=== PATIENT | male | born 1980 | race Two or more races ===

== ENCOUNTER 2024-08-01 12:23 | Inpatient (IN) | payer MEDICAID, OTHER ==
[~2024-08-01] VITALS: Ht 190.5 cm; Wt 116.9 kg
--- NOTE | 2024-08-01 13:22 | ED.PDOC ---
HPI Comments This is a 43 year old male presenting to the ED with chief complaint of lower extremity swelling. Patient reports that he has been experiencing bilateral lower extremity swelling with associated generalized weakness for the past 2 weeks. Patient relays that he had been seen by his PCP recently, but his labs were normal according to him. Patient denies any chest pain, SOB, dizziness, N/V, headache, or blurred vision. Chief Complaint: Lower Extremity Time Seen by MD: 13:08 Reviewed Notes: Nurses Notes, Medications, Allergies Allergies: Coded Allergies: Aspirin (Verified Allergy, Unknown, 08/01/24) Information Source: Patient Mode of Arrival: Ambulatory Severity: Moderate Timing: Weeks Duration: Since onset Prehospital treatment: None Onset: At Rest Cardiac Risk Factors: None PE Risk Factors: None Past Medical History PAST MEDICAL HISTORY: Denies Surgical History: Denies all surgeries Family History Family History: Reviewed,noncontributory to illness Social History Smoker: Non-Smoker Alcohol: Denies ETOH Use Drugs: Denies Drug Use Lives In: Home Constitutional: reports: weakness; denies: chills, diaphoresis, fatigue, fever, malaise, sweats, others EENTM: denies: blurred vision, double vision, ear bleeding, ear discharge, ear drainage, ear pain, ear ringing, eye pain, eye redness, hearing loss, mouth pain, mouth swelling, nasal discharge, nose bleeding, nose congestion, nose pain, photophobia, tearing, throat pain, throat swelling, voice changes, others Respiratory: denies: cough, hemoptysis, orthopnea, SOB at rest, shortness of breath, SOB with excertion, stridor, wheezing, others Cardiovascular: reports: edema; denies: chest pain, dizzy spells, diaphoresis, Dyspnea on exertion, irregular heart beat, left arm pain, lightheadedness, palpitations, PND, syncope, others Gastrointestinal: denies: abdomen distended, abdominal pain, blood streaked bowels, constipated, diarrhea, dysphagia, difficulty swallowing, hematemesis, melena, nausea, poor appetite, poor fluid intake, rectal bleeding, rectal pain, vomiting, others Genitourinary: denies: burning, dysuria, flank pain, frequency, hematuria, i ncontinence, penile discharge, penile sore, pain, testicle pain, testicle swelling, urgency, others Neurological: denies: dizziness, fainting, headache, left sided numbness, left sided weakness, numbness, paresthesia, pre-existing deficit, right sided numbness, right sided weakness, seizure, speech problems, tingling, tremors, weakness, others Musculoskeletal: denies: back pain, gout, joint pain, joint swelling, muscle pain, muscle stiffness, neck pain, others Integumetry: denies: bruises, change in color, change in hair/nails, dryness, laceration, lesions, lumps, rash, wounds, others Allergic/Immunocompromised: denies: Difficulty Healing, Frequent Infections, Hives, Itching, others Hematologic/Lymphatic: denies: anemia, blood clots, easy bleeding, easy bruising, swollen glands, others Endocrine: denies: excessive hunger, excessive sweating, excessive thirst, excessive urination, flushing, intolerance to cold, intolerance to heat, unexplained weight gain, unexplained weight loss, others Psychiatric: denies: anxiety, bipolar disorder, depression, hopeless, panic disorder, schizophrenia, sleepless, suicidal, others All Other Systems: Reviewed and Negative Physical Exam General Appearance: No Apparent Distress, Normal HEENT: Normal ENT Inspection, PERRL/EOMI Neck: Full Range of Motion, Non-Tender, Normal, Normal Inspection Respiratory: Chest Non-Tender, Lungs Clear, No Accessory Muscle Use, No Respiratory Distress, Normal Breath Sounds Cardiovascular: No Edema, No JVD, No Murmur, No Gallop, Normal Peripheral Pulses, Regular Rate/Rhythm Breast Exam: Deferred Gastrointestinal: No Organomegaly, Non Tender, No Pulsatile Mass, Normal Bowel Sounds, Soft Genitalia: Deferred Pelvic: Deferred Rectal: Deferred Extremities: Leg edema (2+ pitting edema to bilateral lower extremities.), Normal capillary refill, Normal inspection, Normal range of motion Musculoskeletal : Apperance: Normal Neurologic: Alert, surveyor hydrographic II-XII nml as Tested, No Motor Deficits, Normal Affect, Normal Mood, No Sensory Deficits Cerebellar Function: Normal Reflexes: Normal Skin: Dry, Normal Color, Warm Lymphatic: No Adenopathy Was a procedure done? Was a procedure done?: No CP Differential Dx Differential Diagnosis: AK Differential Diagnosis: HTN Essential, HTN Accelerated Differential Diagnosis: Gastritis, Myocardial Infarction X-Ray, Labs, Meds, VS Vital Signs Date Time Temp Pulse Resp B/P (MAP) Pulse Ox O2 Delivery O2 Flow Rate FiO2 08/01/24 12:50 98.8 67 12 134/74 (94) 99 98.8 Lab Test 08/01/24 15:00 08/01/24 14:05 08/01/24 13:20 Range/Units Urine Color Pending Urine Clarity Pending Urine pH Pending Urine Specific [place] Pending Urine Protein Pending Urine Ketones Pending Urine Blood Pending Urine Nitrite Pending Urine Bilirubin Pending Urine Urobilinogen Pending Urine Leukocyte Esterase Pending Urine RBC Pending Urine Microscopic WBC Pending Urine Squamous Epithelial Cells Pending Urine Bacteria Pending Urine Glucose Pending Troponin I High Sensitivity 8 7 </=54 ng/L White Blood Count 5.5 4.4-10.8 10^3/uL Red Blood Count 4.04 L 4.5-5.90 10^6/uL Hemoglobin 11.9 L 13.5-17.5 g/dL Hematocrit 35.3 L 41.0-53.0 % Mean Corpuscular Volume 87.5 80.0-100.0 fL Mean Corpuscular Hemoglobin 29.6 28.0-32.0 pg Mean Corpuscular Hemoglobin Concent 33.8 32.0-36.0 g/dL Red Cell Distribution Width 14.9 H 11.8-14.3 % Platelet Count 367 140-450 10^3/uL Mean Platelet Volume 6.4 L 6.9-10.8 fL Neutrophils (%) (Auto) 37.0 37.0-80.0 % Lymphocytes (%) (Auto) 51.9 H 10.0-50.0 % Monocytes (%) (Auto) 7.1 0.0-12.0 % Eosinophils (%) (Auto) 2.7 0.0-7.0 % Basophils (%) (Auto) 1.3 0.0-2.0 % Neutrophils # (Auto) 2.0 1.6-8.6 10 ^3/uL Lymphocytes # (Auto) 2.9 0.4-5.4 10 ^3/uL Monocytes # (Auto) 0.4 0-1.3 10 ^3/uL Eosinophils # (Auto) 0.1 0-0.8 10 ^3/uL Basophils # (Auto) 0.1 0-0.2 10 ^3/uL Nucleated Red Blood Cells 0.1 % Sodium Level 143 136-145 mmol/L Potassium Level 4.3 3.5-5.1 mmol/L Chloride Level 110 H 98-107 mmol/L Carbon Dioxide Level 28 20-31 mmol/L Anion Gap 5 5-15 Blood Urea Nitrogen 14 9-23 mg/dL Creatinine 1.08 0.700-1.30 mg/dL Glomerular Filtration Rate Calc 88 >90 mL/min BUN/Creatinine Ratio 13.0 10.0-20.0 Serum Glucose 101 74-106 mg/dL Calcium Level 8.9 8.7-10.4 mg/dL B-Type Natriuretic Peptide 132.15 0-100 pg/mL Chest XR: FINDINGS: Lines and tubes: None Cardiomediastinal silhouette: normal Pulmonary vasculature: normal Lung expansion: normal Lung airspace: normal Lung interstitium: normal Pleura: normal Pneumothorax: no Bones: Unremarkable Other: no IMPRESSION: No acute intrathoracic abnormality. Images Reviewed?: Images reviewed and evaluated by me Time of 1ST Reevaluation: 14:08 Reevaluation 1ST: Unchanged Patient Education/Counseling: Diagnosis, Treatment Family Education/Counseling: No Family Present Additional Information Previous visits reviewed: None The following tests were ordered, and results were reviewed by me: CBC, BMP, BNP, UA, Troponin, EKG, Chest XR Additional Information was gathered from interviewing the following independent historians: None I reviewed and agreed with the following test results read by other providers: Chest XR I discussed treatment and results with medical personnel and: patient Comprehensive systems review obtained and negative except for what is stated in the HPI. Departure 1 Departure Time of Disposition: 15:35 (Patient with concern of new onset heart failure. Patient's workup so far is benign however patient with a worsening weakness and lower extremity edema.) Impression: Primary Impression: Lower extremity edema Additional Impressions: Generalized weakness Suspected congestive heart failure Disposition: ADMITTED INPATIENT Admit to: Med Surg Condition: Serious Critical Care Note Critical Care Time?: No Stability Stability form required: No Heart Score Heart Score: Heart Score Response (Comments) Value History Highly Suspicious 2 EKG Normal 0 Age <45 0 Risk Factors No known risk factors 0 Troponin Normal limit 0 Total 2 I personally scribed for BERKLEY DIAZ MD ([email or web address]) on 08/01/24 at 13:22. Electr onically submitted by Neri Marrero ([email or web address]). I personally scribed for BERKLEY DIAZ MD ([email or web address]) on 08/01/24 at 13:38. Electr onically submitted by Neri Marrero ([email or web address]). BERKLEY DIAZ MD Aug 01, 2024 13:22
--- NOTE | 2024-08-01 13:23 | DVH ---
XY CHEST PORTABLE, HISTORY: lower extremity swelling COMPARISON: None None TECHNICAL DATA: 1 view of the chest was obtained. FINDINGS: Lines and tubes: None Cardiomediastinal silhouette: normal Pulmonary vasculature: normal Lung expansion: normal Lung airspace: normal Lung interstitium: normal Pleura: normal Pneumothorax: no Bones: Unremarkable Other: no IMPRESSION: No acute intrathoracic abnormality.
[2024-08-01 13:45] LABS: Basophils # (auto) 0.1 10 ^3/uL (0-0.2); Basophils % (auto) 1.3 % (0.0-2.0); Eosinophils # (auto) 0.1 10 ^3/uL (0-0.8); Eosinophils % (auto) 2.7 % (0.0-7.0); Hematocrit 35.3 % (41.0-53.0); Hemoglobin 11.9 g/dL (13.5-17.5); Lymphocytes # (auto) 2.9 10 ^3/uL (0.4-5.4); Lymphocytes % (auto) 51.9 % (10.0-50.0); Mean Corpuscular Hemoglobin 29.6 pg (28.0-32.0); Mean Corpuscular Hgb Conc. 33.8 g/dL (32.0-36.0); Mean Corpuscular Volume 87.5 fL (80.0-100.0); Monocytes # (auto) 0.4 10 ^3/uL (0-1.3); Monocytes % (auto) 7.1 % (0.0-12.0); Nucleated Red Blood Cells % 0.1 %; Platelet Count (auto) 367 10^3/uL (140-450); Red Blood Cells 4.04 10^6/uL (4.5-5.90); Red Cell Distribution Width 14.9 % (11.8-14.3); White Blood Cell 5.5 10^3/uL (4.4-10.8)
[2024-08-01 13:51] LABS: Potassium 4.3 mmol/L (3.5-5.1); Sodium 143 mmol/L (136-145)
[2024-08-01 13:52] LABS: Anion Gap 5 (5-15); Calcium 8.9 mg/dL (8.7-10.4); Carbon Dioxide 28 mmol/L (20-31)
[2024-08-01 13:53] LABS: Chloride 110 mmol/L (98-107)
[2024-08-01 13:57] LABS: Blood Urea Nitrogen 14 mg/dL (9-23); Glucose 101 mg/dL (74-106)
[2024-08-01 15:56] LABS: Urine Bacteria FEW /hpf (None Seen); Urine Blood 1+ /uL (Negative); Urine Clarity Clear (Clear); Urine Color Yellow (Yellow); Urine Mucus FEW (None Seen); Urine Protein, UAD 2+ (Negative); Urine Specific Gravity 1.032 (1.001-1.035); Urine Squamous Epithelial Cell FEW /hpf (<5); Urine Urobilinogen Normal (Negative); Urine WBC 4 /HPF (0-3); Urine pH 5.5 (5.0-9.0)
[2024-08-01 18:35] VITALS: PULSE 67; RESP 20; O2SAT 97
[2024-08-01] MEDS: ACETAMINOPHEN 325 MG TAB PO ONE (19:06)
[2024-08-01 22:57] LABS: Protein, Urine 170.9 mg/dL (1-14)
[2024-08-01 23:00] LABS: Cannabinoid Screen, Urine Pos (NEGATIVE)
[2024-08-01 23:08] LABS: Urine Protein/Creatinine Ratio 0.57
[2024-08-01 23:10] LABS: Creatinine, Urine 300.83 mg/dL (30.0-125.0)
[2024-08-01 23:11] LABS: Amphetamine Screen, Urine Neg (NEGATIVE); Barbiturate Scree,Urine Neg (NEGATIVE); Benzodiazephine Screen, Urine Neg (NEGATIVE); Cocaine Screen, Urine Neg (NEGATIVE); Phencyclidine Screen, Urine Neg (NEGATIVE)
[2024-08-01 23:42] LABS: Opiate Scree,Urine Neg (NEGATIVE)
[2024-08-02] VITALS (7 sets, daily range): BP systolic 128–166; BP diastolic 75–85; PULSE 50–67; RESP 16–20; TEMP 97.9–98.6; O2SAT 97–100
[2024-08-02] MEDS: FUROSEMIDE 40 MG/4 ML VIAL IV ONE (00:06)
[2024-08-02] MEDS ORDERED: ACETAMINOPHEN 325 MG TAB PO PRN (01:00)
--- NOTE | 2024-08-02 01:03 | DVH ---
Bilateral lower extremity venous duplex Clinical History: rule out DVT Comparison: None Technique: Duplex Doppler evaluation of the deep venous systems of both lower extremities from the common femora l veins to the popliteal veins including color Doppler and spectral/pulsed waveform analysis was perf ormed. Findings: RIGHT SIDE: The common femoral vein demonstrates appropriate compressibility and waveform variability. There is compressibility/patency of the great saphenous vein at the proximal thigh. The femoral vein demonstrates appropriate compressibility and waveform variability. The deep femoral vein demonstrates appropriate compressibility and waveform variability. The popliteal vein demonstrates appropriate compressibility and waveform variability. There is normal compressibility at the tibioperoneal trunk. LEFT SIDE: The common femoral vein demonstrates appropriate compressibility and waveform variability. There is compressibility/patency of the great saphenous vein at the proximal thigh. The femoral vein demonstrates appropriate compressibility and waveform variability. The deep femoral vein demonstrates appropriate compressibility and waveform variability. The popliteal vein demonstrates appropriate compressibility and waveform variability. There is normal compressibility at the tibioperoneal trunk. Multiple enlarged inguinal lymph nodes identified bilaterally measuring up to 3.2 cm on the right and 2.6 cm on the left. Impression: 1. No right or left femoropopliteal venous thrombosis. 2. Enlarged bilateral inguinal lymph nodes.
--- NOTE | 2024-08-02 01:06 | DVHHPRES ---
History of Present Illness Resident Creating Document: SHIRA ESTEVEZ RESIDENT History of Present Illness Patient is a 43-year-old male with no significant past medical history presented to the ED with a chief complaint of bilateral lower extremity swelling. He reports having started with the left lower extremity since the past 2 weeks and after a few days his right lower extremity also started to swell up. The swelling is worse at the end of the day, patient works at [employer] and has a standing job. Reports early in the morning the swelling is less as compared to the evening by the end of a shift. Reports of pain in the left lower extremity which has also gotten worse in the last 1 week. Denies any periorbital swelling, does not report of urine being frothy, no dysuria, shortness of breath even when exerting himself, no history of hypertension or diabetes. Patient denies any history of chronic liver disease. Reports of having a ear infection recently about a week ago for which he was prescribed oral antibiotics and reports it is better. Past medical history: None Past surgical history: None Social history: Patient denies smoking, alcohol, any other drug use Family history: No family history of heart disease, mother had breast cancer No home medications Review of Systems Review of Systems Patient seen and examined at the bedside Reports of bilateral pedal edema Left lower extremity tenderness at the level of the ankle Denies shortness of breath, chest pain Allergies: Coded Allergies: Aspirin (Verified Allergy, Unknown, 08/01/24) Exam Vital Signs Vital Signs Date Time Temp Pulse Resp B/P (MAP) Pulse Ox O2 Delivery O2 Flow Rate FiO2 08/02/24 00:06 136/90 08/01/24 23:54 61 16 98 08/01/24 19:06 98.1 08/01/24 18:35 Room Air* 0 21 Exam Gen - no pallor, no icterus, no cyanosis, no clubbing Skin - Patients skin is warm and dry. HEENT - normocephalic, atraumatic, moist mucous membranes. Neck - full ROM, no LAD, no JVD Pulmonary - B/L equal breath sounds, no crackles, no wheezing, no stridor. cardiovascular - regular S1,S2 heard, no added sounds, no murmurs heard. peripheral pulses normal radial 2+, pedal 2+. capillary refill normal <2 secs. Extremities: Bilateral lower extremity edema, 3+ on the left, 2+ on the right with swelling more on the left than the right GI - soft, nontender abdomen. no hepatospleenomegaly. Bowel sounds normoactive Neurological - Patient is A/O X 3 . Bilateral upper extremity strength 5/5, bilateral lower extremity strength 5/5, no facial droop, normal speech, no tremor, no sensory deficiets. Labs/Xrays Labs Test 08/01/24 16:40 08/01/24 15:00 08/01/24 13:20 Range/Units Troponin I High Sensitivity 7 </=54 ng/L Urine Color Yellow Yellow Urine Clarity Clear Clear Urine pH 5.5 5.0-9.0 Urine Specific [place] 1.032 1.001-1.035 Urine Protein 2+ H Negative Urine Ketones Negative Negative Urine Blood 1+ H Negative /uL Urine Nitrite Negative Negative Urine Bilirubin Negative Negative Urine Urobilinogen Normal Negative mg/dL Urine Leukocyte Esterase Negative Negative /uL Urine RBC 1 0 - 3 /hpf Urine Microscopic WBC 4 H 0-3 /HPF Urine Squamous Epithelial Cells Few <5 /hpf Urine Bacteria Few H None Seen /hpf Urine Mucus Few None Seen Urine Creatinine 300.83 H 30.0-125.0 mg/dL Urine Protein/Creatinine Ratio 0.57 Urine Glucose Normal Normal mg/dL Urine Total Protein 170.9 H 1-14 mg/dL Urine Opiates Screen Neg NEGATIVE Urine Fentanyl Screen Neg NEGATIVE Urine Barbiturates Screen Neg NEGATIVE Urine Phencyclidine Screen Neg NEGATIVE Urine Amphetamines Screen Neg NEGATIVE Urine Benzodiazepines Screen Neg NEGATIVE Urine Cocaine Screen Neg NEGATIVE Urine Cannabinoids Screen Pos NEGATIVE White Blood Count 5.5 4.4-10.8 10^3/uL Red Blood Count 4.04 L 4.5-5.90 10^6/uL Hemoglobin 11.9 L 13.5-17.5 g/dL Hematocrit 35.3 L 41.0-53.0 % Mean Corpuscular Volume 87.5 80.0-100.0 fL Mean Corpuscular Hemoglobin 29.6 28.0-32.0 pg Mean Corpuscular Hemoglobin Concent 33.8 32.0-36.0 g/dL Red Cell Distribution Width 14.9 H 11.8-14.3 % Platelet Count 367 140-450 10^3/uL Mean Platelet Volume 6.4 L 6.9-10.8 fL Neutrophils (%) (Auto) 37.0 37.0-80.0 % Lymphocytes (%) (Auto) 51.9 H 10.0-50.0 % Monocytes (%) (Auto) 7.1 0.0-12.0 % Eosinophils (%) (Auto) 2.7 0.0-7.0 % Basophils (%) (Auto) 1.3 0.0-2.0 % Neutrophils # (Auto) 2.0 1.6-8.6 10 ^3/uL Lymphocytes # (Auto) 2.9 0.4-5.4 10 ^3/uL Monocytes # (Auto) 0.4 0-1.3 10 ^3/uL Eosinophils # (Auto) 0.1 0-0.8 10 ^3/uL Basophils # (Auto) 0.1 0-0.2 10 ^3/uL Nucleated Red Blood Cells 0.1 % Sodium Level 143 136-145 mmol/L Potassium Level 4.3 3.5-5.1 mmol/L Chloride Level 110 H 98-107 mmol/L Carbon Dioxide Level 28 20-31 mmol/L Anion Gap 5 5-15 Blood Urea Nitrogen 14 9-23 mg/dL Creatinine 1.08 0.700-1.30 mg/dL Glomerular Filtration Rate Calc 88 >90 mL/min BUN/Creatinine Ratio 13.0 10.0-20.0 Serum Glucose 101 74-106 mg/dL Calcium Level 8.9 8.7-10.4 mg/dL B-Type Natriuretic Peptide 132.15 0-100 pg/mL Assessment/Plan Assessment/Plan Bilateral lower extremity edema Probable nephritic syndrome ?PSGN, non nephrotic range proteinuria ? Early nephrotic syndrome, possibly due to undiagnosed hypertension Rule out congestive heart failure Rule out liver disease ? Gout - IV Lasix - spot urine total protein 170 mg/dL, urine dipstick protein 2+ - urine protein/creatinine ratio 0.57 - microscopic hematuria 1+ - ARABELLA pending, HbA1c pending - complement level, antistreptolysin O antibody pending - lipid panel pending - echocardiogram pending - 1 dose of losartan given DVT prophylaxis: Enoxaparin Goals of care discussed with the patient for over 23 minutes. Full code Time spent: 41 minutes Plan discussed with Dr. Neville Plan discussed with: Patient My Orders Orders - JHAJJ,SARPUNEET RESIDENT Procedure Category Date Status Time Admit ADMIT 08/01/24 Transmitted 22:15 Notify Of Changes LUISANA 08/01/24 In Process From Base 22:15 Echo 2d Mode Cardiac US 08/01/24 Logged DOP 22:15 Bilat Lower Dvt US 08/01/24 Taken 22:15 Complete Blood Count LAB 08/02/24 Logged 04:00 Comprehensive LAB 08/02/24 Logged Metabolic Panel 04:00 Date of Service: Aug 01, 2024 Billing Provider: MARYLU NEVILLE MD Common Visit Codes: 05027-WJPQWPU INP/OBS CARE (HIGH) Secondary Visit Codes: 50301-SBMOGRRL CARE PLAN 30 MINUTES SHIRA ESTEVEZ RESIDENT Aug 02, 2024 01:06
[2024-08-02] MEDS ORDERED: LOSARTAN POTASSIUM 50 MG TAB PO ONE (02:00)
[2024-08-02] MEDS: LOSARTAN POTASSIUM 25 MG TAB PO ONE (04:06)
[2024-08-02] MEDS: IBUPROFEN 600 MG TAB PO PRN (04:07)
[2024-08-02 06:48] LABS: Hematocrit 34.8 % (41.0-53.0); Hemoglobin 11.8 g/dL (13.5-17.5); Mean Corpuscular Hemoglobin 29.7 pg (28.0-32.0); Mean Corpuscular Hgb Conc. 33.9 g/dL (32.0-36.0); Mean Corpuscular Volume 87.7 fL (80.0-100.0); Platelet Count (auto) 335 10^3/uL (140-450); Red Blood Cells 3.97 10^6/uL (4.5-5.90); Red Cell Distribution Width 15.4 % (11.8-14.3); White Blood Cell 5.9 10^3/uL (4.4-10.8)
[2024-08-02 06:51] LABS: Band Neutrophils % (manual) 0; Basophils % (manual) 0 (0.0-2.0); Blast Cells 0; Metamyelocytes % 0; Myelocytes % 0; Promyelocytes % 0
[2024-08-02 06:52] LABS: Anion Gap 7 (5-15); BUN/Creatinine Ratio 15.2 (10.0-20.0); Blood Urea Nitrogen 15 mg/dL (9-23); Carbon Dioxide 28 mmol/L (20-31); Sodium 142 mmol/L (136-145); Total Protein 6.2 g/dL (5.7-8.2)
[2024-08-02 06:53] LABS: Alanine Aminotransferase 91 U/L (7-40); Albumin 3.1 g/dL (3.2-4.8); Aspartate Aminotransferase 59 U/L (13-40); Bilirubin, Total 0.2 mg/dL (0.2-1.0); Calcium 8.2 mg/dL (8.7-10.4); Chloride 107 mmol/L (98-107); Glucose 68 mg/dL (74-106); Uric Acid 9.8 mg/dL (3.7-9.2)
[2024-08-02 07:33] LABS: Erythrocyte Sedimentation Rate 55 mm/hr (0-20)
[2024-08-02 07:42] LABS: Alkaline Phosphatase 190 U/L (46-116)
[2024-08-02 07:43] LABS: Eosinophils % (manual) 1 (0-7); Lymphocytes % (manual) 56 (10.0-50.0); Monocytes % (manual) 8 (0-12); Reactive Lymphocytes 4
[2024-08-02 07:44] LABS: Platelet Estimate Adequate; RBC Morphology Normal
[2024-08-02] MEDS: FUROSEMIDE 20 MG/2 ML VIAL IV SCH (09:41)
[2024-08-02] MEDS: ENOXAPARIN SOD 40 MG/0.4 ML SYRINGE SC SCH (09:44)
[2024-08-02] MEDS ORDERED: KETOROLAC TROMETH 30 MG/ML 1ML VIAL IV PRN (11:30)
[2024-08-02] MEDS ORDERED: IBUPROFEN 600 MG TAB PO PRN (12:45)
--- NOTE | 2024-08-02 13:40 | DVHSR ---
APPROVED REPORT EXAM: Two-dimensional and M-mode echocardiogram with Doppler and color Doppler. Blood Pressure: 134/78 mmHg INDICATION B/L leg swelling RISK FACTORS Height: 73, Weight: 257 DIMENSIONS LVDd4.6 (3.8-5.7cm)LA (2D)5.5 (1.9-4.0cm)Aortic Root4.0 (2.0-3.7cm) LVDs3.2 (2.5-4.0cm)LA (MM) (1.9-4.0cm)Aortic Cusp Exc2.3 (1.5-2.0cm) EF (%) 58.0 (55-70%)Rt. Atrium4.9 (1.9-4.0cm)Asc. Aorta cm IVSd1.4 (0.7-1.1cm)RV (D) (1.8-2.4cm) PWd1.5 (0.7-1.1cm) Mitral Valve MitralMitral Stenosis E wave1.05m/sMV Mean GR.mmHg A wave0.49m/sMV Peak GR.mmHg E/A ratio2.12D MVAcm2 DECEL [id number] 1/2 [id number] IVRTmsDop MVA3.08cm2 Aortic Valve Aortic ValveAortic Stenosis V11.37m/Fermin Mean GR.6mmHg V21.65m/Fermin Peak GR.11mmHg LVOT Diameter2.5 (1.8-2.4cm)Doppler AVA4.07cm2 AI P 1/2 Mbms157.26ms Pulmonic Valve V21.13m/s Tricuspid Valve TR Velocity2.40m/s [id number] Conclusion lvef 60% borderline LVH grade 1 diastolic dysfunction normal rv function left atrium enlarged no severe valve abnormaliteis noted
[2024-08-02] MEDS: HYDROcodone-ACET 5/325MG TAB PO PRN (14:19)
[2024-08-02 15:51] LABS: Triglycerides 72 mg/dL (< 150)
[2024-08-02 15:52] LABS: Cholesterol 155 mg/dL (< 200)
[2024-08-02 15:53] LABS: HDL Cholesterol 41 mg/dL (40-59)
[2024-08-02 15:54] LABS: LDL Cholesterol 103 mg/dL (< 100)
--- NOTE | 2024-08-02 17:54 | DVHPNRES ---
Progress Note Date Seen: Aug 02, 2024 Resident Creating Document: KIAN MORTON RESIDENT Has the PT tested + for MRSA If YES, has PT been informed?: No Medical Necessity Reason Pt with a Central, PICC or Fol: No Subjective Review of Systems Patient is a 43-year-old male with no significant past medical history presented to the ED with a chief complaint of bilateral lower extremity swelling. He reports having started with the left lower extremity since the past 2 weeks and after a few days his right lower extremity also started to swell up. The swelling is worse at the end of the day, patient works at [employer] and has a standing job. Reports early in the morning the swelling is less as compared to the evening by the end of a shift. Reports of pain in the left lower extremity which has also gotten worse in the last 1 week. Denies any periorbital swelling, does not report of urine being frothy, no dysuria, shortness of breath even when exerting himself, no history of hypertension or diabetes. Patient denies any history of chronic liver disease. Reports of having a ear infection recently about a week ago for which he was prescribed oral antibiotics and reports it is better. Past medical history: None Past surgical history: None Social history: Patient denies smoking, alcohol, any other drug use Family history: No family history of heart disease, mother had breast cancer No home medications 08/02/2024: Patient still states edema and mild pain, clinical picture looks possible autoimmune condition, RF added to autoimmune panel Objective vital signs Vital Sign Date Time Temp Pulse Resp B/P (MAP) Pulse Ox O2 Delivery O2 Flow Rate FiO2 08/02/24 17:10 98.3 50 18 128/79 (95) 97 98.3 08/02/24 08:08 Room Air* 0 21 Total Intake and Output 08/01/24 08/01/24 08/02/24 15:00 23:00 07:00 Intake Total 400 ml Balance 400 ml medications Current Medications Medications Dose Ordered Sig/Castillo Route Start Time Stop Time Status Last Admin Dose Admin Furosemide 20 mg DAILY IV 08/02/24 10:00 08/02/24 09:41 20 MG Acetaminophen 650 mg Q8HP PRN PO 08/02/24 01:00 Enoxaparin Sodium 40 mg DAILY SC 08/02/24 10:00 08/02/24 09:44 40 MG Acetaminophen/ Hydrocodone Bitart 1 tab Q6HPRN PRN PO 08/02/24 12:30 08/02/24 14:19 1 TAB Ibuprofen 600 mg BIDPRN PRN PO 08/02/24 12:45 Examination Gen - no pallor, no icterus, no cyanosis, no clubbing Skin - Patients skin is warm and dry. HEENT - normocephalic, atraumatic, moist mucous membranes. Neck - full ROM, no LAD, no JVD Pulmonary - B/L equal breath sounds, no crackles, no wheezing, no stridor. cardiovascular - regular S1,S2 heard, no added sounds, no murmurs heard. peripheral pulses normal radial 2+, pedal 2+. capillary refill normal <2 secs. Extremities: Bilateral lower extremity edema, 3+ on the left, 2+ on the right with swelling more on the left than the right GI - soft, nontender abdomen. no hepatospleenomegaly. Bowel sounds normoactive Neurological - Patient is A/O X 3 . Bilateral upper extremity strength 5/5, bilateral lower extremity strength 5/5, no facial droop, normal speech, no tremor, no sensory deficiets. laboratory and microbiology Laboratory Tests 08/02/24 04:01 Test 08/02/24 04:01 Range/Units Serum Glucose 68 L 74-106 mg/dL Problem List/Assessment/Plan Problem List/Assessment/Plan Bilateral lower extremity edema ?rule out autoimmnue condition Probable nephritic syndrome ?PSGN, non nephrotic range proteinuria ? Early nephrotic syndrome, possibly due to undiagnosed hypertension Rule out congestive heart failure Rule out liver disease ? Gout Mild transaminitis - IV Lasix - spot urine total protein 170 mg/dL, urine dipstick protein 2+ - urine protein/creatinine ratio 0.57 - microscopic hematuria 1+ - ARABELLA pending, HbA1c 5.4 - complement level, antistreptolysin O antibody, RF pending - lipid panel: normal - echocardiogram normal - 1 dose of losartan given DVT prophylaxis: Enoxaparin Goals of care discussed with the patient for over 23 minutes. Full code Time spent: 41 minutes Plan discussed with Dr. Neal Plan discussed with: Patient, Other My Orders My Orders Orders - KIAN MORTON Procedure Category Date Status Time Hydrocodone-Acet PHA 08/02/24 In Process 5/325mg Tab ([place] 12:30 Ibuprofen Tablet PHA 08/02/24 In Process (Motrin Tablet) 12:45 KIAN MORTON RESIDENT Aug 02, 2024 17:54
[2024-08-03 01:00] VITALS: BP 131/77; PULSE 53; RESP 18; TEMP 98; O2SAT 100
[2024-08-03 05:00] VITALS: BP 133/78; PULSE 52; RESP 18; TEMP 97.8; O2SAT 98
[2024-08-03 08:07] LABS: Complement C3 139 mg/dL (82-167)
[2024-08-03 09:05] VITALS: BP 129/87; PULSE 57; RESP 18; TEMP 98; O2SAT 98
[2024-08-03] MEDS ORDERED: IBUP-1453 PO (11:02)
[2024-08-03 12:12] VITALS: BP 129/87; PULSE 59; RESP 18; TEMP 98; O2SAT 98
[2024-08-03 12:30] VITALS: BP 118/79; PULSE 56; RESP 16; TEMP 98.1; O2SAT 97
--- NOTE | 2024-08-03 13:11 | DVHDSRES ---
Discharge Summary Date of Admission Resident Creating Document: KIAN MORTON RESIDENT Aug 01, 2024 at 22:15 Date of Discharge: Aug 03, 2024 Admitting Diagnosis Bilateral lower extremity edema Labs/Diagnostic Data: Laboratory Results Test 08/02/24 04:01 08/02/24 04:00 08/01/24 16:40 08/01/24 15:00 White Blood Count 5.9 10^3/uL (4.4-10.8) Red Blood Count 3.97 10^6/uL (4.5-5.90) Hemoglobin 11.8 g/dL (13.5-17.5) Hematocrit 34.8 % (41.0-53.0) Mean Corpuscular Volume 87.7 fL (80.0-100.0) Mean Corpuscular Hemoglobin 29.7 pg (28.0-32.0) Mean Corpuscular Hemoglobin Concent 33.9 g/dL (32.0-36.0) Red Cell Distribution Width 15.4 % (11.8-14.3) Platelet Count 335 10^3/uL (140-450) Mean Platelet Volume 6.8 fL (6.9-10.8) Neutrophils (%) (Auto) % (37.0-80.0) Lymphocytes (%) (Auto) % (10.0-50.0) Monocytes (%) (Auto) % (0.0-12.0) Basophils (%) (Auto) % (0.0-2.0) Neutrophils # (Auto) 10 ^3/uL (1.6-8.6) Lymphocytes # (Auto) 10 ^3/uL (0.4-5.4) Monocytes # (Auto) 10 ^3/uL (0-1.3) Differential Total Cells Counted 100.0 (100) Neutrophils % (Manual) 31 (37.0-80.0) Band Neutrophils % (Manual) 0 Lymphocytes % (Manual) 56 (10.0-50.0) Monocytes % (Manual) 8 (0-12) Eosinophils % (Manual) 1 (0-7) Basophils % (Manual) 0 (0.0-2.0) Metamyelocytes % (manual) 0 Myelocytes % (Manual) 0 Promyelocytes % (Manual) 0 Blast Cells % (Manual) 0 Reactive Lymphocytes 4 Platelet Estimate Adequate Red Blood Cell Morphology Normal Erythrocyte Sedimentation Rate 55 mm/hr (0-20) Sodium Level 142 mmol/L (136-145) Potassium Level 4.0 mmol/L (3.5-5.1) Chloride Level 107 mmol/L (98-107) Carbon Dioxide Level 28 mmol/L (20-31) Anion Gap 7 (5-15) Blood Urea Nitrogen 15 mg/dL (9-23) Creatinine 0.99 mg/dL (0.700-1.30) Glomerular Filtration Rate Calc 98 mL/min (>90) BUN/Creatinine Ratio 15.2 (10.0-20.0) Serum Glucose 68 mg/dL (74-106) Hemoglobin A1c 5.4 % A1C (<5.7) Uric Acid 9.8 mg/dL (3.7-9.2) Calcium Level 8.2 mg/dL (8.7-10.4) Total Bilirubin 0.2 mg/dL (0.2-1.0) Aspartate Amino Transferase (AST) 59 U/L (13-40) Alanine Aminotransferase (ALT) 91 U/L (7-40) Alkaline Phosphatase 190 U/L (46-116) Total Protein 6.2 g/dL (5.7-8.2) Albumin 3.1 g/dL (3.2-4.8) Triglycerides Level 72 mg/dL (< 150) Cholesterol Level 155 mg/dL (< 200) LDL Cholesterol 103 mg/dL (< 100) HDL Cholesterol 41 mg/dL (40-59) Anti-Nuclear Antibody Screen Negative (Negative) Complement C3 139 mg/dL (82-167) Complement C4 15 mg/dL (12-38) Anti-Streptolysin O Antibody 31.8 IU/mL (0.0-200.0) Troponin I High Sensitivity 7 ng/L (</=54) Urine Color Yellow (Yellow) Urine Clarity Clear (Clear) Urine pH 5.5 (5.0-9.0) Urine Specific [place] 1.032 (1.001-1.035) Urine Protein 2+ (Negative) Urine Ketones Negative (Negative) Urine Blood 1+ /uL (Negative) Urine Nitrite Negative (Negative) Urine Bilirubin Negative (Negative) Urine Urobilinogen Normal mg/dL (Negative) Urine Leukocyte Esterase Negative /uL (Negative) Urine RBC 1 /hpf (0 - 3) Urine Microscopic WBC 4 /HPF (0-3) Urine Squamous Epithelial Cells Few /hpf (<5) Urine Bacteria Few /hpf (None Seen) Urine Mucus Few (None Seen) Urine Creatinine 300.83 mg/dL (30.0-125.0) Urine Protein/Creatinine Ratio 0.57 Urine Glucose Normal mg/dL (Normal) Urine Total Protein 170.9 mg/dL (1-14) Urine Opiates Screen Neg (NEGATIVE) Urine Fentanyl Screen Neg (NEGATIVE) Urine Barbiturates Screen Neg (NEGATIVE) Urine Phencyclidine Screen Neg (NEGATIVE) Urine Amphetamines Screen Neg (NEGATIVE) Urine Benzodiazepines Screen Neg (NEGATIVE) Urine Cocaine Screen Neg (NEGATIVE) Urine Cannabinoids Screen Pos (NEGATIVE) Test 08/01/24 13:20 Eosinophils (%) (Auto) 2.7 % (0.0-7.0) Eosinophils # (Auto) 0.1 10 ^3/uL (0-0.8) Basophils # (Auto) 0.1 10 ^3/uL (0-0.2) Nucleated Red Blood Cells 0.1 % B-Type Natriuretic Peptide 132.15 pg/mL (0-100) Other Laboratory Tests 08/02/24 04:01 Brief Hx & Hospital Course: The patient presented with a 2-week history of progressive bilateral lower extremity edema, initially left-sided, later involving the right. He reported associated mild pain and morning improvement in swelling. No dyspnea or orthopnea was noted. The patient denied personal or family history of renal or cardiovascular disease but had a recent URI treated with oral antibiotics. Initial workup revealed proteinuria (urine protein 2+, total 170.9 mg/dL, protein/creatinine ratio 0.57), microscopic hematuria (1+ blood, 4 RBC/hpf), and mildly elevated ESR (55). Autoimmune workup showed negative ARABELLA, low-normal RF (<10), and mildly low C4 (15) with normal C3 (139). Labs showed normocytic anemia (Hgb 11.1, Hct 34.7), with normal platelets and WBCs. Liver function showed mild transaminitis. HbA1c was 5.4%. Complement levels and ASO titers (normal) were sent to evaluate for PSGN. 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 Early hypertensive nephropathy remained on the differential. Mild transaminitis was attributed to possible medication use or underlying inflammation. The patient received IV furosemide for volume control, with good response. A single dose of losartan was trialed. DVT prophylaxis with enoxaparin was given. No signs of CHF or liver disease were present on echo or clinical exam. ARABELLA, RF, and ASO were pending initially; results later confirmed a negative autoimmune profile. Follow-Up and Recommendations: [facility] clinic in1 week fu Monitor renal function, urine studies, and blood pressure Consider repeating complement levels and obtaining full hepatitis and infectious serologies if worsening Avoid NSAIDs and nephrotoxic agents Continue fluid and salt restriction as tolerated Condition at Discharge: Stable Disposition: Home Discharge Instructions: Patient advised to monitor for worsening swelling, blood in urine, or new systemic symptoms. Case discussed with Dr Neal Operations or Procedures Clinical History: rule out DVT Comparison: None Technique: Duplex Doppler evaluation of the deep venous systems of both lower extremities from the common femoral veins to the popliteal veins including color Doppler and spectral/pulsed waveform analysis was performed. Findings: RIGHT SIDE: The common femoral vein demonstrates appropriate compressibility and waveform variability. There is compressibility/patency of the great saphenous vein at the proximal thigh. The femoral vein demonstrates appropriate compressibility and waveform variability. The deep femoral vein demonstrates appropriate compressibility and waveform variability. The popliteal vein demonstrates appropriate compressibility and waveform variability. There is normal compressibility at the tibioperoneal trunk. LEFT SIDE: The common femoral vein demonstrates appropriate compressibility and waveform variability. There is compressibility/patency of the great saphenous vein at the proximal thigh. The femoral vein demonstrates appropriate compressibility and waveform variability. The deep femoral vein demonstrates appropriate compressibility and waveform variability. The popliteal vein demonstrates appropriate compressibility and waveform variability. There is normal compressibility at the tibioperoneal trunk. Multiple enlarged inguinal lymph nodes identified bilaterally measuring up to 3.2 cm on the right and 2.6 cm on the left. Impression: 1. No right or left femoropopliteal venous thrombosis. 2. Enlarged bilateral inguinal lymph nodes. Condition at Discharge: Stable Final Diagnosis/Problems List Bilateral lower extremity edema ?rule out autoimmnue condition Probable nephritic syndrome ?PSGN, non nephrotic range proteinuria ? Early nephrotic syndrome, possibly due to undiagnosed hypertension Rule out congestive heart failure Rule out liver disease ? Gout Mild transaminitis Discharge Disposition: Home Discharge Instruct/Medications Diet: Renal Activity: Light activity Follow Up/Referral: [facility] appt Medications: see prescription Discharge Statement: "Patient was advised to return to the ER or call 911 if any headaches, dizziness, shortness of breath, chest pain, abdominal pain, bleeding, fevers, or worsening of medical condition. Patient was counseled about treatment plan, medications, possible side effects, patientverbalized understanding. All questions were answered to the best of my ability. This discharge took greater then 30 minutes in planning, reviewing documentation, counseling the patient, and discussing with other team members." ASSESSMENT ASSESSMENT Assessment edema bilateral rule out vasculitis KIAN MORTON RESIDENT Aug 03, 2024 13:11
== END 2024-08-03 13:40 | disposition home or self-care (01) | DRG 462 ==
LOC: ER 12:23 → OVERFLOW 22:15 → WEST WING 22:31
PROVIDERS: ADMIT Student in an Organized Health Care Education/Training Program; ATTEND Student in an Organized Health Care Education/Training Program
DX: N05.9 Unspecified nephritic syndrome with unspecified morphologic changes (principal); I11.0 Hypertensive heart disease with heart failure; I50.9 Heart failure, unspecified; M10.9 Gout, unspecified; R31.29 Other microscopic hematuria; R74.01 Elevation of levels of liver transaminase levels; K76.9 Liver disease, unspecified; M35.9 Systemic involvement of connective tissue, unspecified; Z88.3 Allergy status to other anti-infective agents; Z80.3 Family history of malignant neoplasm of breast; Z79.899 Other long term (current) drug therapy
CPT/HCPCS: 36415; 71045; 80048; 80053; 80061; 80307; 81001; 82570; 83036; 83880; 84156; 84484; 84550; 85007; 85025; 85027; 85652; 86038; 86160; 86431; 93306; 93970; 96374; G0378